=== PATIENT | female | born 1990 | race Two or more races ===

== ENCOUNTER 2019-05-25 13:01 | Emergency (ER) | payer SELFPAY ==
--- NOTE | 2019-05-25 15:06 | ER Document Report ---
ED Medical Screen (RME) - General Chief Complaint: Neck Injury Stated Complaint: NECK PAIN Time Seen by Provider: 05/25/19 15:01 Mode of Arrival: Ambulatory Information source: Patient Notes: 28-year-old female presents the ED for complaint of neck pain. She states that was taken on her and she fell off the bed. She states she heard a crack when she before. Patient is alert oriented respirations regular and unlabored. Patient does have paraspinous tenderness neck and upper back. He stated nontender on the vertebrae as it is the paraspinous. States she has not had any Tylenol or Motrin. - Related Data Allergies/Adverse Reactions: No Known Allergies Allergy (Verified 05/25/19 15:00) Past Medical History - General Information source: Patient - Social History Cigarette use (# per day): No Chew tobacco use (# tins/day): No Frequency of alcohol use: None Drug Abuse: None Lives with: Family Family history: Reviewed & Not Pertinent - Medical History Medical History: Negative - Past Medical History Cardiac Medical History: Reports: None Pulmonary Medical History: Reports: None EENT Medical History: Reports: None Neurological Medical History: Reports: None Endocrine Medical History: Reports: None Renal/ Medical History: Reports: None Malignancy Medical History: Reports: None GI Medical History: Reports: None Musculoskeltal Medical History: Reports Hx Musculoskeletal Deformity, Reports Hx Musculoskeletal Trauma Skin Medical History: Reports None Traumatic Medical History: Reports: Hx Fractures - Neck ankle foot ribs leg, Hx Spine Fracture - Neck a year ago Infectious Medical History: Reports: None Past Surgical History: Reports: Hx Orthopedic Surgery - Multiple orthopedic surgeries - Immunizations Immunizations up to date: Yes Hx Diphtheria, Pertussis, Tetanus Vaccination: Yes - 2015 Physical Exam - Vital signs Vitals: Temp Pulse Resp BP Pulse Ox 97.9 F 75 18 114/66 96 05/25/19 13:17 05/25/19 13:17 05/25/19 13:17 05/25/19 13:17 05/25/19 13:17 Course - Vital Signs Vital signs: Temp Pulse Resp BP Pulse Ox 97.9 F 75 18 114/66 96 05/25/19 13:17 05/25/19 13:17 05/25/19 13:17 05/25/19 13:17 05/25/19 13:17
[2019-05-25] MEDS ORDERED: KETOROLAC TROMETHAMINE 60 MG/2 ML SDV IM ONE (15:08)
--- NOTE | 2019-05-25 16:04 | RADIOLOGY REPORT (SQ) ---
EXAM DESCRIPTION: CT CERVICAL SPINE WITHOUT COMPLETED DATE/TIME: 05/25/2019 3:45 pm REASON FOR STUDY: fall neck pain COMPARISON: None. TECHNIQUE: Axial images acquired through the cervical spine without intravenous contrast. Images re viewed with lung, soft tissue and bone windows. Reconstructed coronal and sagittal MPR images review ed. Images stored on PACS. All CT scanners at this facility use dose modulation, iterative reconstruction, and/or weight based d osing when appropriate to reduce radiation dose to as low as reasonably achievable (ALARA). [facility]: Dose Right [facility]: CareDose [facility]: Dose Right [facility]: Teradose 4D [facility]: [employer] RADIATION DOSE: CT Rad equipment meets quality standard of care and radiation dose reduction techniq ues were employed. CTDIvol: 19.1 mGy. DLP: 359 mGy-cm. mGy. LIMITATIONS: None. FINDINGS: ALIGNMENT: There is mild reversal of the cervical lordosis. MINERALIZATION: Normal. VERTEBRAL BODIES: No fractures or dislocation. DISCS: No significant disc disease. FACETS, LATERAL MASSES, POSTERIOR ELEMENTS: No fractures. No dislocation. No acute findings. HARDWARE: None in the spine. VISUALIZED RIBS: No fractures. LUNG APICES AND SOFT TISSUES: No acute findings at the visualized lung apices. The thyroid gland is enlarged. 7 mm hypodense nodule is noted at the right lobe of the thyroid gland. IMPRESSION: 1. No acute fracture at the cervical spine. Mild reversal of the cervical lordosis, may be positional or due to muscle spasm. 2. Enlarged thyroid gland. 7 mm hypodense nodule at the right lobe of the thyroid gland. Nonemergen t thyroid ultrasound can be obtained for further evaluation. TECHNICAL DOCUMENTATION: JOB ID: [id number] [place]-64 Quality ID # [id number]: Final reports with documentation of one or more dose reduction techniques (e.g., Au tomated exposure control, adjustment of the mA and/or kV according to patient size, use of iterative reconstruction technique) 2010 [employer]- All Rights Reserved Reading location - IP/workstation name: [email or web address]
--- NOTE | 2019-05-25 17:03 | ER Document Report ---
ED Neck/Back Problem - General Chief Complaint: Neck Injury Stated Complaint: NECK PAIN Time Seen by Provider: 05/25/19 15:01 Mode of Arrival: Ambulatory Notes: About 11:30 AM this morning, patient accidentally rolled out of her bed and hit her neck on a carpeted floor. It caused her neck to flex significantly and she felt a pop in her neck. She did not immediately lose feeling but says she developed some numbness in both of their arms and less so in her legs that lasted about 5 to 6 minutes. Did not feel anything like an electric shock going down either arm or leg. She had no problems walking. She denies any other complaints. - Related Data Allergies/Adverse Reactions: No Known Allergies Allergy (Verified 05/25/19 15:00) Past Medical History - General Information source: Patient - Social History Smoking Status: Never Smoker Cigarette use (# per day): No Chew tobacco use (# tins/day): No Frequency of alcohol use: None Drug Abuse: None Lives with: Family Family History: Reviewed & Not Pertinent Patient has suicidal ideation: No Patient has homicidal ideation: No - Medical History Medical History: Negative - Past Medical History Cardiac Medical History: Reports: None Pulmonary Medical History: Reports: None EENT Medical History: Reports: None Neurological Medical History: Reports: None Endocrine Medical History: Reports: None Renal/ Medical History: Reports: None Malignancy Medical History: Reports: None GI Medical History: Reports: None Musculoskeletal Medical History: Reports Hx Musculoskeletal Deformity, Reports Hx Musculoskeletal Trauma Skin Medical History: Reports None Traumatic Medical History: Reports: Hx Fractures - Neck ankle foot ribs leg, Hx Spine Fracture - Neck a year ago Infectious Medical History: Reports: None Past Surgical History: Reports: Hx Orthopedic Surgery - Multiple orthopedic surgeries - Immunizations Immunizations up to date: Yes Hx Diphtheria, Pertussis, Tetanus Vaccination: Yes - 2015 Review of Systems - Review of Systems Notes: CONSTITUTIONAL : Denies fever. CARDIOVASCULAR: Denies chest pain. RESPIRATORY: Denies cough, chest congestion, or shortness of breath. GASTROINTESTINAL: Denies abdominal pain or nausea, vomiting, or diarrhea. GENITOURINARY: Denies difficulty or painful urinating, urinary frequency, blood in urine. Physical Exam - Vital signs Vitals: Temp Pulse Resp BP Pulse Ox 97.9 F 75 18 114/66 96 05/25/19 13:17 05/25/19 13:17 05/25/19 13:17 05/25/19 13:17 05/25/19 13:17 Interpretation: Normal Notes: PHYSICAL EXAMINATION: GENERAL: Well-appearing, no acute distress. HEAD: Atraumatic, normocephalic. NECK: Some mild tenderness of the muscles of the posterior neck. No midline tenderness over the spinous processes of any of the cervical vertebrae. The tenderness is confined primarily to the lower half of the C-spine. Not a lot of pain with moving of the neck. LUNGS: Breath sounds clear and equal bilaterally. HEART: Regular rate and rhythm without murmurs heard. ABDOMEN: Soft, nontender. No guarding or rebound or masses felt. 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 No: Weakness, Hemiplegia Sensory: Normal Course - Vital Signs Vital signs: Temp Pulse Resp BP Pulse Ox 97.5 F 75 18 114/67 100 05/25/19 17:32 05/25/19 17:32 05/25/19 13:17 05/25/19 17:32 05/25/19 17:32 - Diagnostic Test Radiology results interpreted by me: 05/25/19 20:56 CT scan of the cervical spine was normal. Patient was noted to have a small 7 mm nodule in her right thyroid. I went through an explanation of what this could be and the need for follow-up by her primary care doctor to get an ultrasound to more clearly determine what is because of that nodule. Patient expresses understanding of the need for her to follow-up as an outpatient for further work-up. Discharge - Discharge Clinical Impression: Cervical strain, acute Condition: Stable Disposition: HOME, SELF-CARE Additional Instructions: NECK INJURY (CERVICAL STRAIN): You have a neck strain. This is an injury to the muscles and ligaments in the neck. There is no evidence of a fracture of the neck bones. Also, no injury to the spinal cord or nerve roots was detected. Usually, stiffness and pain INCREASE for the first 24-48 hours after the injury. The pain will gradually resolve and the neck will become more mobile. Most patients are back at work or school within a few days. Typically, complete healing takes about two or three weeks. The usual initial treatment is rest and cold packs. A neck collar may be placed to keep the muscles of the neck at rest. Antiinflammatory and muscle relaxing medication are often used to reduce the spasm and irritation. You should call the doctor, or go to the hospital, if you develop numbness or weakness in any extremity, problems with your bladder or bowel, or pain radiating down the arms. MUSCLE STRAIN: You have strained a muscle -- torn the fibers within the muscle. This often occurs with strenuous exertion, or during an injury that suddenly stretches the muscle. The seriousness of a strain varies. Some strains heal within days, others cause problems for months. X-rays cannot show a muscle strain. X-rays are taken only if symptoms suggest that a fracture could be present. The usual treatment of a muscle strain is rest and ice packs. Sometimes, a sling, splint, or crutches may be necessary to rest the muscle. The muscle can be used again once pain subsides. Severe strains require a special exercise and stretching program to prevent permanent stiffness and disability. Your doctor will advise you if this will be necessary. Call the doctor immediately if pain or swelling becomes severe, or if numbness or discoloration develop. USE OF TYLENOL (ACETAMINOPHEN): Acetaminophen may be taken for pain relief or fever control. It's much safer than aspirin, offering a wider range of "safe" dosages. It is safe during . Some brand names are Tylenol, Panadol, Datril, Anacin 3, Tempra, and Liquiprin. Acetaminophen can be repeated every four hours. The following are maximum recommended dosages: WEIGHT Dose Drops Elixir Chewable(80mg) (LBS.) drprs=droppers tsp=teaspoon >89 pounds or adults 650 mg to 900 mg Acetaminophen can be repeated every four hours. Maximum dose not to exceed 4000 mg a day. These maximum recommended dosages are slightly higher than the dosages written on the product container, but these dosages are very safe and below the toxic dosage for acetaminophen. Ibuprofen Ibuprofen is an excellent, safe drug for pain control. In addition, it has potent antiinflammatory effects which are beneficial, especially in the treatment of injuries, arthritis, or tendonitis. It's best to take ibuprofen with food. Persons with ulcer disease or allergy to aspirin should notify their physician of this before taking ibuprofen. Take the medication exactly as prescribed. Don't take additional doses unless instructed to do so by your doctor. If you develop wheezing, shortness of breath, hives, faintness, stomach pain, vomiting, or dark black stools, return for re-evaluation at once. NON-SUTURED LACERATION: Your laceration did not require suturing. Some lacerations cannot be sutured because of increased infection risk, while others simply don't need stitches because they are shallow or very short. Your injury should be protected while it heals. Usually complete healing takes 10 to 14 days. Keep the dressing clean and dry, and change it every day. If you notice increasing pain, redness, swelling, drainage, or tender lumps in the armpit or groin above the injury, infection may be present. You should call the doctor at once. ICE PACKS: Apply ice packs frequently against the painful area. Many different schedules are recommended, such as "20 minutes on, 20 minutes off" or "one hour ice, two hours rest." If you need to work, you may need to go longer between ice treatments. You should plan to have the area ice packed AT LEAST one fourth of the time. The ice should be applied over the wrap, tape, or splint, or over a layer of cloth -- not directly against the skin. Some ice bags have a built-in cloth and can be put directly on the skin. WARM PACKS: After approximately two days, apply gentle heat (such as a heating pad or hot water bottle) for about 20 to 30 minutes about every two hours -- at least four times daily. Warmth and elevation will help you make a more rapid recovery, and will ease the pain considerably. Do not use HOT heat, and never apply heat for longer than 30 minutes. The continuous heat can invisibly damage skin and muscles -- even when no burn is seen on the surface. Damaged muscles can make you MORE sore. FOLLOW-UP CARE: If you have been referred to a physician for follow-up care, call the physicians office for an appointment as you were instructed or within the next two days. If you experience worsening or a significant change in your symptoms, notify the physician immediately or return to the Emergency Department at any time for re-evaluation.
[2019-05-25 17:58] VITALS: BP 114/67
== END 2019-05-25 17:32 | disposition home or self-care (01) ==
LOC: ER 13:01
DX: S16.1XXA Strain of muscle, fascia and tendon at neck level, initial encounter (principal); W06.XXXA Fall from bed, initial encounter; R20.0 Anesthesia of skin; E04.1 Nontoxic single thyroid nodule
CPT/HCPCS: 72125; L0120; J1885; 96372; 99283

== ENCOUNTER 2020-05-11 20:42 | Emergency (ER) | payer SELFPAY ==
--- NOTE | 2020-05-11 20:59 | ER Document Report ---
ED Medical Screen (RME) - General Chief Complaint: Vaginal Bleeding Stated Complaint: VAGINAL BLEEDING AND CRAMPING Time Seen by Provider: 05/11/20 20:55 Mode of Arrival: Ambulatory Information source: Patient Notes: 29-year-old female presents to ED for complaint of vaginal bleeding pelvic cramping fatigue and very tired. She states she started this morning and is soaked 5 pads today which is more than her normal. She states her last menstrual period was April 23, 2020 and it is too soon for her cycle. States she does not know if she is if that when she started again. She states she does not drink smoke or use any illicit drugs. She is alert oriented respirations regular nonlabored speaking in full sentences. I have greeted and performed a rapid initial assessment of this patient. A comprehensive ED assessment and evaluation of the patient, analysis of test results and completion of medical decision making process will be conducted by an additional ED providers. - Related Data Allergies/Adverse Reactions: No Known Allergies Allergy (Verified 05/11/20 20:56) Past Medical History - Social History Family history: Reviewed & Not Pertinent Musculoskeltal Medical History: Reports Hx Musculoskeletal Deformity, Reports Hx Musculoskeletal Trauma Traumatic Medical History: Reports: Hx Fractures - Neck ankle foot ribs leg, Hx Spine Fracture - Neck a year ago Past Surgical History: Reports: Hx Orthopedic Surgery - Multiple orthopedic surgeries - Immunizations Immunizations up to date: Yes Hx Diphtheria, Pertussis, Tetanus Vaccination: Yes - 2015
[2020-05-11 21:49] LABS: APPEARANCE,URINE CLOUDY; BILIRUBIN,URINE NEGATIVE (NEGATIVE); COLOR,URINE YELLOW; GLUCOSE, URINE NEGATIVE (NEGATIVE); KETONES,URINE NEGATIVE (NEGATIVE); LEUKOCYTE ESTERASE,URINE NEGATIVE (NEGATIVE); NITRITE,URINE NEGATIVE (NEGATIVE); PROTEIN,URINE 100 mg/dL (NEGATIVE); URINE SPECIFIC GRAVITY 1.021; UROBILINOGEN,URINE NEGATIVE mg/dL (<2.0)
[2020-05-11 22:11] LABS: ABSOLUTE BASOPHILS # (AUTO) 0.1 10^3/uL (0.0-0.2); ABSOLUTE EOSINOPHILS # (AUTO) 0.2 10^3/uL (0.0-0.6); ABSOLUTE LYMPHOCYTES (AUTO) 3.3 10^3/uL (0.5-4.7); ABSOLUTE MONOCYTES (AUTO) 0.7 10^3/uL (0.1-1.4); ABSOLUTE NEUT (AUTO) 5.9 10^3/uL (1.7-8.2); BASOPHILS % (AUTO) 0.8 % (0-2); EOSINOPHILS % (AUTO) 2.2 % (0-6); HEMATOCRIT 38.1 % (36.0-47.0); HEMOGLOBIN 12.8 g/dL (12.0-15.5); LYMPHOCYTES % (AUTO) 32.1 % (13-45); MEAN CORPUSCULAR HEMOGLOBIN 26.9 pg (27.0-33.4); MEAN CORPUSCULAR HGB CONC 33.7 g/dL (32.0-36.0); MEAN CORPUSCULAR VOLUME 80 fl (80-97); PLATELET COUNT 337 10^3/uL (150-450); RED BLOOD COUNT 4.77 10^6/uL (3.72-5.28); RED CELL DISTRIBUTION WIDTH 13.2 % (11.5-14.0); SEGMENTED NEUTROPHILS % (AUTO) 57.9 % (42-78); TOTAL CELLS COUNTED % (AUTO) 100 %; WHITE BLOOD COUNT 10.2 10^3/uL (4.0-10.5)
--- NOTE | 2020-05-11 22:15 | RADIOLOGY REPORT (SQ) ---
US PELVIS HISTORY: Pelvic pain. Vaginal bleeding. COMPARISON: None. TECHNIQUE: Grayscale, color Doppler, and spectral Doppler ultrasound images of the pelvis were obtained. FINDINGS: The uterus is anteverted and measures 8.1 x 3.9 x 4.6 cm. The endometrium is 2 mm in thickness. The cervix is 3.3 cm and contains a small amount of fluid in the endocervical canal. No intrauterine fibroids are evident. Both ovaries are normal in size and contain normal follicles, with the right ovary measuring 4.3 x 2.8 cm and the left ovary measuring 4.7 x 4.7 cm. There is a 2.5 cm cyst in the right ovary and a 4 cm cyst in the left ovary. Blood flow is seen in both ovaries. IMPRESSION: 1. Bilateral ovarian cysts, for which no follow-up imaging is needed. 2. Small amount of fluid in the endocervical canal, nonspecific.
[2020-05-11 22:26] LABS: ALKALINE PHOSPHATASE 72 U/L (38-126); ANION GAP 6 (5-19); ASPARTATE AMINO TRANSFERASE 14 U/L (14-36); BILIRUBIN,DIRECT 0.2 mg/dL (0.0-0.4); BILIRUBIN,TOTAL 0.5 mg/dL (0.2-1.3); BLOOD UREA NITROGEN 10 mg/dL (7-20); CALCIUM 9.4 mg/dL (8.4-10.2); CARBON DIOXIDE 25 mmol/L (22-30); CHLORIDE 105 mmol/L (98-107); GLUCOSE 117 mg/dL (75-110); POTASSIUM 4.4 mmol/L (3.6-5.0); TOTAL PROTEIN 6.6 g/dL (6.3-8.2)
--- NOTE | 2020-05-12 05:57 | ER Document Report ---
ED General - General Chief Complaint: Vaginal Bleeding Stated Complaint: VAGINAL BLEEDING AND CRAMPING Time Seen by Provider: 05/11/20 20:55 Primary Care Provider: KALI HARTMAN PA-C [Primary Care Provider] - Follow up as needed Mode of Arrival: Ambulatory Notes: 29-year-old non female presents with 1 day of heavy vaginal bleeding. 1 clot. Has calmed down since she been waiting in the ED for several hours. Minimal abdominal cramping. No meds. No vomiting. History of Nexplanon, due for replacement in just a few weeks. Dizziness lightheadedness heavy bleeding or pallor. - Related Data Allergies/Adverse Reactions: No Known Allergies Allergy (Verified 05/11/20 20:56) Past Medical History - General Information source: Patient - Social History Smoking Status: Never Smoker Frequency of alcohol use: None Drug Abuse: None Family History: Reviewed & Not Pertinent Musculoskeletal Medical History: Reports Hx Musculoskeletal Deformity, Reports Hx Musculoskeletal Trauma Traumatic Medical History: Reports: Hx Fractures - Neck ankle foot ribs leg, Hx Spine Fracture - Neck a year ago Past Surgical History: Reports: Hx Orthopedic Surgery - Multiple orthopedic surgeries - Immunizations Immunizations up to date: Yes Hx Diphtheria, Pertussis, Tetanus Vaccination: Yes - 2015 Review of Systems - Review of Systems Notes: REVIEW OF SYSTEMS GEN: Denies fever, chills, weight loss ENT: Denies sore throat, nasal discharge, ear pain EYES: Denies blurry vision, eye pain, discharge CV: Denies chest pain, palpitations, edema RESP: Denies cough, shortness of breath, wheezing GI: [place] cramping vaginal bleeding MSK: Denies joint pain/swelling, edema, SKIN: Denies rash, skin lesions LYMPH: Denies swollen glands/lymph nodes NEURO: Denies headache, focal weakness or numbness, dizziness PSYCH: Denies depression, suicidal or homicidal ideation PHYSICAL EXAMINATION General: No acute distress, well-nourished Head: Atraumatic, normocephalic ENT: Mouth normal, oropharynx moist, lips normal Eyes: Conjunctiva normal, pupils equal, lids normal Neck: No JVD, supple, no guarding Resp: No resp distress, equal chest rise GI: Nondistended, no guarding Back: No midline or CVA tenderness Ext: No deformities, no edema Skin: Well-perfused, no rash Neuro: Awake, alert. Face symmetric. Physical Exam - Vital signs Vitals: Temp Pulse Resp BP Pulse Ox 98.6 F 81 16 135/84 H 99 05/11/20 21:01 05/11/20 21:01 05/11/20 21:01 05/11/20 21:01 05/11/20 21:01 Course - Re-evaluation Re-evalutation: 05/12/20 07:19 Stable non vaginal bleeding, tiny ovarian cysts on ultrasound but no other acute findings, not horribly anemic labs normal symptoms resolving. Likely hormone withdrawal abnormal uterine bleeding. Recommended Motrin and follow-up with primary care. I have discussed with the patient there likely diagnosis, aftercare plan, follow-up plans and my usual and customary return precautions. They verbalized understanding of this. - Vital Signs Vital signs: Temp Pulse Resp BP Pulse Ox 97.9 F 77 16 129/83 H 100 05/12/20 03:55 05/12/20 06:08 05/12/20 06:08 05/12/20 06:08 05/12/20 06:08 - Laboratory Result Diagrams: 05/11/20 22:05 05/11/20 22:05 Laboratory results interpreted by me: 05/11/20 05/11/20 05/11/20 21:18 22:05 22:05 MCH 26.9 L Sodium 136.4 L Glucose 117 H Urine Protein 100 H Urine Blood LARGE H Discharge - Discharge Clinical Impression: Abnormal uterine bleeding (AUB) Condition: Good Disposition: HOME, SELF-CARE Instructions: Vaginal Bleeding ([facility]) Additional Instructions: PRIMARY CARE 2days Forms: Return to Work Referrals: KALI HARTMAN PA-C [Primary Care Provider] - Follow up as needed
[2020-05-12 06:10] VITALS: BP 129/83
== END 2020-05-12 06:08 | disposition home or self-care (01) ==
LOC: ER 20:42
DX: N93.9 Abnormal uterine and vaginal bleeding, unspecified (principal); N83.202 Unspecified ovarian cyst, left side; N83.201 Unspecified ovarian cyst, right side; R10.2 Pelvic and perineal pain; Z97.5 Presence of (intrauterine) contraceptive device
CPT/HCPCS: 36415; 76830; 80053; 81001; 83690; 84702; 85025; 99284